=== PATIENT | male | born 1995 | race Caucasian/White ===

== ENCOUNTER 2017-05-17 00:32 | Emergency (ER) | payer SELFPAY ==
[2017-05-17 01:43] LABS: ABS Basophils 0.1 10^3/ul (0-0.2); ABS Eosinophils 0.1 10^3/ul (0-0.6); ABS Lymphocytes 2.2 10^3/ul (1.0-4.8); ABS Monocytes 0.7 10^3/ul (0-0.8); ABS Neutrophils 6.5 10^3/ul (1.5-7.7); ABS Nucleated RBC 0 10^3/ul; Eosinophil % 1.4 % (0-6); Hematocrit 43 % (42-52); Hemoglobin 14.8 g/dl (14.0-18.0); Lymphocyte % 22.8 % (25-47); Mean Corpuscular HGB Conc 34 g/dl (31-36); Mean Corpuscular Hemoglobin 30 pg (27-31); Mean Corpuscular Volume 87 fL (80-94); Mean Platelet Volume 10 um3 (7.4-10.4); Nucleated Red Blood Cells % 0; Platelet Count 198 10^3/ul (150-450); Red Blood Count 4.93 10^6/ul (4.0-5.4); Red Cell Distribution Width 13 % (10.5-15); White Blood Count 9.5 10^3/ul (3.5-10.8)
[2017-05-17 01:45] LABS: Urine Appearance Clear; Urine Blood Negative (Negative); Urine Color Yellow; Urine Ketones Trace (Negative); Urine Protein 1+(30 mg/dL) (Negative); Urine Specific Gravity 1.024 (1.010-1.030); Urine Urobilinogen Negative (Negative)
[2017-05-17 01:54] LABS: EGFR Non-African American 98.2 (>60)
[2017-05-17] MEDS ORDERED: Nicotine Inhaler* 10 MG AMP INH PRN (03:40)
[2017-05-17] MEDS ORDERED: Mouth Piece, Nicotine* 1 EACH CARTRIDGE INH PRN ×2 (03:40→03:47)
[2017-05-17] MEDS ORDERED: Mouth Piece, Nicotine* 1 EACH CARTRIDGE INH STA (03:40)
[2017-05-17] MEDS ORDERED: Mouth Piece, Nicotine* 1 EACH CARTRIDGE ONE (03:43)
[2017-05-17] MEDS ORDERED: Nicotine Inhaler* 10 MG AMP ONE (03:43)
[2017-05-17] MEDS ORDERED: Nicotine Inhaler* 10 MG AMP INH ONE (03:47)
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
[2017-05-18 15:30] VITALS: BP 140/72
== END 2017-05-17 10:08 ==
LOC: ED 00:32
DX: R45.851 Suicidal ideations (principal); Z87.898 Personal history of other specified conditions
CPT/HCPCS: 36415; 80053; 80307; 80320; 80329; 81003; 81015; 84443; 85025; 99284; A9270-GY; G0480